=== PATIENT | male | born 1970 | race Caucasian/White ===

== ENCOUNTER 2020-08-27 21:03 | Inpatient (IN) | payer BC ==
--- NOTE | 2020-08-27 22:13 | XR ---
EXAMINATION TYPE: XR chest 1V portable DATE OF EXAM: 08/27/2020 COMPARISON: NONE HISTORY: Short of breath TECHNIQUE: Single view FINDINGS: There is some mild infiltrate and atelectasis at the lung bases bilaterally. There is no he art failure. Heart size is normal. There are chest leads. There are no hilar masses. Mediastinum is n ormal. IMPRESSION: Mild basilar pulmonary infiltrates and atelectasis.
[2020-08-27 22:14] LABS: Basophils # (A) 0.1 k/uL (0-0.2); Basophils % (A) 1 %; Eosinophils % (A) 0 %; HCT 50.7 % (39.0-53.0); HGB 17.2 gm/dL (13.0-17.5); Lymphocytes # (A) 0.7 k/uL (1.0-4.8); Lymphocytes % (A) 6 %; MCH 27.1 pg (25.0-35.0); MCV 79.8 fL (80.0-100.0); Mean Platelet Volume 7.3; Monocytes # (A) 0.6 k/uL (0-1.0); Monocytes % (A) 6 %; Neutrophils # (A) 8.9 k/uL (1.3-7.7); Neutrophils % (A) 85 %; Platelet Count 273 k/uL (150-450); RBC 6.35 m/uL (4.30-5.90); RDW 13.5 % (11.5-15.5); WBC 10.5 k/uL (3.8-10.6)
--- NOTE | 2020-08-27 22:19 | ED ---
SOB HPI - General Source: patient Mode of arrival: ambulatory Limitations: no limitations <Isidra Hoang Adebayo - Last Filed: 08/27/20 22:25> - History of Present Illness MD Complaint: shortness of breath, cough, anxiety -: week(s) Severity: moderate Severity scale (1-10): 6 Consistency: constant Improves With: oxygen, rest, upright position Worsens With: exertion, movement, other (Sleeping) Known History Of: other (Sleep apnea) Context: recent illness (Known coronavirus) Associated Symptoms: denies other symptoms <Afshin Maldonado - Last Filed: 08/28/20 01:40> - General Chief Complaint: Shortness of Breath Stated Complaint: COVID+, Revisit Time Seen by Provider: 08/27/20 21:34 - History of Present Illness Initial Comments: Patient is a 50-year-old male presenting to the emergency department with complaints of increasing shortness of breath and chest tightness. Patient states that he was recently diagnosed with Covid, 10 days ago, symptoms began 11 days ago. Patient states he was admitted to [facility] 3 nights ago for a PE, he was discharged home yesterday. Patient states he was started on eliqui s for the PE. He does wear a CPAP at home but states he's been having a hard time with this, feeling very anxious. He states he feels like "he is going to go to sleep and not wake up." He talked to his PCP regarding this and they did prescribe him a very low dose of Xanax to try. He is on steroids and he recommended taking the steroids only in the morning and trying the Xanax at night for sleep. Patient states he attempted this this evening but states he feels like his symptoms increase. He feels like he cannot slow down his heart rate. He does admit to some chest tightness. He states his fevers have been decreasing, he did have a low-grade temperature this morning. Denies any nausea or vomiting, he states he has been eating a normal diet, drinking water. Patient does have history of hyperaldosteronism and states he usually struggles with a high sodium and low potassium but he states in the past week he has been struggling with the opposite of a low sodium and high potassium. Patient has no further complaints at this time. Upon arrival to the ER, his pulse is 121, he is afebrile, BP is 138/87, 93% on room air. (Isidra Hoang) - Related Data Allergies Allergy/AdvReac Type Severity Reaction Status Date / Time Sulfa (Sulfonamide Allergy Rash/Hives Verified 08/27/20 23:06 Antibiotics) Review of Systems ROS Other: All systems not noted in ROS Statement are negative. <Isidra Hoang - Last Filed: 08/27/20 22:25> ROS Other: All systems not noted in ROS Statement are negative. <Afshin Maldonado - Last Filed: 08/28/20 01:40> ROS Statement: Those systems with pertinent positive or pertinent negative responses have been documented in the HPI. Past Medical History Past Medical History: GERD/Reflux, Hypertension, Pulmonary Embolus (PE) Additional Past Medical History / Comment(s): Hyperaldosoterone History of Any Multi-Drug Resistant Organisms: None Reported Past Surgical History: No Surgical Hx Reported Past Psychological History: No Psychological Hx Reported Smoking Status: Never smoker Past Alcohol Use History: None Reported Past Drug Use History: None Reported <Isidra Hoang - Last Filed: 08/27/20 22:25> General Exam Limitations: no limitations <Isidra Hoang - Last Filed: 08/27/20 22:25> General appearance: alert, anxious, in distress, obese Head exam: Present: atraumatic, normocephalic, normal inspection Eye exam: Present: normal appearance, PERRL, EOMI. Absent: scleral icterus, conjunctival injection, periorbital swelling ENT exam: Present: normal exam, mucous membranes moist Neck exam: Present: normal inspection. Absent: tenderness, meningismus, lymphadenopathy Respiratory exam: Present: normal lung sounds bilaterally, respiratory distress, accessory muscle use, decreased breath sounds, prolonged expiratory. Absent: wheezes, rales, rhonchi, stridor Cardiovascular Exam: Present: regular rate, normal rhythm, tachycardia, normal heart sounds. Absent: systolic murmur, diastolic murmur, rubs, gallop, clicks GI/Abdominal exam: Present: soft, normal bowel sounds. Absent: distended, tenderness, guarding, rebound, rigid Extremities exam: Present: normal inspection, full ROM, normal capillary refill. Absent: tenderness, pedal edema, joint swelling, calf tenderness Back exam: Present: normal inspection Neurological exam: Present: alert, oriented X3, CN II-XII intact Psychiatric exam: Present: normal affect, normal mood Skin exam: Present: warm, dry, intact, normal color. Absent: rash <Afshin Maldonado - Last Filed: 08/28/20 01:40> - General Exam Comments Initial Comments: GENERAL: Patient is well-developed and well-nourished. Patient is nontoxic and in mild distress, seems very anxious. HEAD: Atraumatic, normocephalic. EYES: Pupils equal round and reactive to light, extraocular movements intact, sclera anicteric, conjunctiva are normal. Eyelids were unremarkable. ENT: TMs normal, nares patent, oropharynx clear without exudates. Moist mucous membranes. NECK: Normal range of motion, supple without lymphadenopathy or JVD. LUNGS: Unlabored respirations. Breath sounds clear to auscultation bilaterally and equal. No wheezes rales or rhonchi. HEART: Tachycardia rate and rhythm without murmurs, rubs or gallops. ABDOMEN: Soft, nontender, normoactive bowel sounds. No guarding, no rebound. No masses appreciated. : Deferred MUSCULOSKELETAL: Normal extremities with adequate strength and normal range of motion, no pitting or edema. No clubbing or cyanosis. NEUROLOGICAL: Patient is alert and oriented x 3. Motor and sensory are also intact. Cranial nerves II through XII grossly intact. Symmetrical smile. Normal speech, normal gait. PSYCH: Normal mood, normal affect. SKIN: Warm, Dry, normal turgor, no rashes or lesions noted. (Isidra Hoang) Course <Afshin Maldonado - Last Filed: 08/28/20 01:40> Vital Signs 08/27/20 08/27/20 08/27/20 21:06 22:12 22:20 Temperature 98.5 F Pulse Rate 121 H 111 H Respiratory 24 20 20 Rate Blood Pressure 138/87 121/94 O2 Sat by Pulse 93 L 92 L Oximetry 08/27/20 08/28/20 08/28/20 23:13 00:07 01:17 Temperature Pulse Rate 107 H 104 H 107 H Respiratory 20 18 18 Rate Blood Pressure 131/90 122/88 133/88 O2 Sat by Pulse 94 L 93 L 93 L Oximetry - Reevaluation(s) Reevaluation #1: 08/28/20 01:36 medical record is reviewed (Afshin Maldonado) Reevaluation #2: 08/28/20 01:36 Medical record is reviewed (Afshin Maldonado) Reevaluation #3: 08/28/20 01:39 Patient still in severe anxiety and distress over inability to sleep and shortness of breath (Afshin Maldonado) Medical Decision Making - Lab Data Result diagrams: 08/27/20 21:53 <Isidra Hoang - Last Filed: 08/27/20 22:25> - Lab Data Result diagrams: 08/27/20 21:53 08/27/20 21:53 <Afshin Maldonado - Last Filed: 08/28/20 01:40> - Medical Decision Making Patient is a 50-year-old male here for shortness of breath, chest tightness and anxiety. A shunt was diagnosed with Covid 10 days ago, symptoms began 11 days ago. He he was at [facility] for the past 2 nights, diagnosed with a PE, started on Eliquis. Jossue and arrived tachycardia, 93% on room air. He is afebrile. (Isidra Hoang) 50 male will be admitted for coronavirus, supportive care, patient has known PE with coronavirus (Afshin Maldonado) - Lab Data Lab Results 08/27/20 08/27/20 08/27/20 Range/Units 21:53 21:53 21:53 WBC 10.5 (3.8-10.6) k/uL RBC 6.35 H (4.30-5.90) m/uL Hgb 17.2 (13.0-17.5) gm/dL Hct 50.7 (39.0-53.0) % MCV 79.8 L (80.0-100.0) fL MCH 27.1 (25.0-35.0) pg MCHC 34.0 (31.0-37.0) g/dL RDW 13.5 (11.5-15.5) % Plt Count 273 (150-450) k/uL MPV 7.3 Neutrophils % 85 % Lymphocytes % 6 % Monocytes % 6 % Eosinophils % 0 % Basophils % 1 % Neutrophils # 8.9 H (1.3-7.7) k/uL Lymphocytes # 0.7 L (1.0-4.8) k/uL Monocytes # 0.6 (0-1.0) k/uL Eosinophils # 0.0 (0-0.7) k/uL Basophils # 0.1 (0-0.2) k/uL PT 13.0 H (9.0-12.0) sec INR 1.3 H (<1.2) APTT 25.9 (22.0-30.0) sec D-Dimer 0.34 (<0.60) mg/L FEU Sodium 129 L (137-145) mmol/L Potassium 5.2 H (3.5-5.1) mmol/L Chloride 95 L (98-107) mmol/L Carbon Dioxide 22 (22-30) mmol/L Anion Gap 12 mmol/L BUN 29 H (9-20) mg/dL Creatinine 1.18 (0.66-1.25) mg/dL Est GFR (CKD-EPI)AfAm 83 (>60 ml/min/1.73 sqM) Est GFR (CKD-EPI)NonAf 72 (>60 ml/min/1.73 sqM) Glucose 106 H (74-99) mg/dL Plasma Lactic Acid Ghassan (0.7-2.0) mmol/L Calcium 9.4 (8.4-10.2) mg/dL Magnesium 1.9 (1.6-2.3) mg/dL Total Bilirubin 0.9 (0.2-1.3) mg/dL AST 39 (17-59) U/L ALT 45 (4-49) U/L Alkaline Phosphatase 67 (38-126) U/L Lactate Dehydrogenase 801 H (313-618) U/L Troponin I (0.000-0.034) ng/mL C-Reactive Protein 82.4 H (<10.0) mg/L NT-Pro-B Natriuret Pep pg/mL Total Protein 7.3 (6.3-8.2) g/dL Albumin 4.1 (3.5-5.0) g/dL 08/27/20 08/27/20 08/27/20 Range/Units 21:53 22:15 22:19 WBC (3.8-10.6) k/uL RBC (4.30-5.90) m/uL Hgb (13.0-17.5) gm/dL Hct (39.0-53.0) % MCV (80.0-100.0) fL MCH (25.0-35.0) pg MCHC (31.0-37.0) g/dL RDW (11.5-15.5) % Plt Count (150-450) k/uL MPV Neutrophils % % Lymphocytes % % Monocytes % % Eosinophils % % Basophils % % Neutrophils # (1.3-7.7) k/uL Lymphocytes # (1.0-4.8) k/uL Monocytes # (0-1.0) k/uL Eosinophils # (0-0.7) k/uL Basophils # (0-0.2) k/uL PT (9.0-12.0) sec INR (<1.2) APTT (22.0-30.0) sec D-Dimer (<0.60) mg/L FEU Sodium (137-145) mmol/L Potassium (3.5-5.1) mmol/L Chloride (98-107) mmol/L Carbon Dioxide (22-30) mmol/L Anion Gap mmol/L BUN (9-20) mg/dL Creatinine (0.66-1.25) mg/dL Est GFR (CKD-EPI)AfAm (>60 ml/min/1.73 sqM) Est GFR (CKD-EPI)NonAf (>60 ml/min/1.73 sqM) Glucose (74-99) mg/dL Plasma Lactic Acid Ghassan 1.1 (0.7-2.0) mmol/L Calcium (8.4-10.2) mg/dL Magnesium (1.6-2.3) mg/dL Total Bilirubin (0.2-1.3) mg/dL AST (17-59) U/L ALT (4-49) U/L Alkaline Phosphatase (38-126) U/L Lactate Dehydrogenase (313-618) U/L Troponin I <0.012 (0.000-0.034) ng/mL C-Reactive Protein (<10.0) mg/L NT-Pro-B Natriuret Pep 68 pg/mL Total Protein (6.3-8.2) g/dL Albumin (3.5-5.0) g/dL - EKG Data EKG Comments: Sinus tach, possible left atrial enlargement, no signs of acute ischemia. Ventricular rate 107, IA interval 134, QT 302. (Isidra Hoang) Disposition <Isidra Hoang - Last Filed: 08/27/20 22:25> Is patient prescribed a controlled substance at d/c from ED?: No <Afhsin Maldonado - Last Filed: 08/28/20 01:40> Clinical Impression: Coronavirus infection, Pneumonia due to COVID-19 virus, Pulmonary embolism, Anxiety, Sleep apnea Disposition: ADMITTED IP TO THIS HOSP Condition: Fair Referrals: None,Stated [Primary Care Provider] - 1-2 days
[2020-08-27 22:25] LABS: Potassium 5.2 mmol/L (3.5-5.1)
[2020-08-27 22:28] LABS: Albumin 4.1 g/dL (3.5-5.0); C Reactive Protein 82.4 mg/L (<10.0); Calcium 9.4 mg/dL (8.4-10.2); Magnesium 1.9 mg/dL (1.6-2.3); Total Bilirubin 0.9 mg/dL (0.2-1.3); Total Protein 7.3 g/dL (6.3-8.2)
[2020-08-27 22:31] LABS: D-Dimer 0.34 mg/L FEU (<0.60); INR 1.3 (<1.2); Partial Thromboplastin Time 25.9 sec (22.0-30.0)
[2020-08-27] MEDS ORDERED: SODIUM CHLORIDE 0.9% 1,000 ML IV STA (22:58)
[2020-08-28] MEDS ORDERED: IBUPROFEN 400 MG TAB PO PRN (01:30)
[2020-08-28] MEDS ORDERED: MORPHINE SULFATE 4 MG/ML SYRINGE IV PRN (01:30)
[2020-08-28] MEDS ORDERED: ALBUTEROL HFA INHALER INHALATION PRN (01:30)
[2020-08-28] MEDS ORDERED: ACETAMINOPHEN TAB 325 MG TAB PO PRN (01:30)
[2020-08-28] MEDS ORDERED: NALOXONE 0.4 MG/ML 1 ML VIAL IV PRN (01:30)
[2020-08-28] MEDS ORDERED: ONDANSETRON 4 MG/2 ML VIAL IVP PRN (01:30)
[2020-08-28] MEDS ORDERED: ALBUTEROL HFA INHALER INHALATION STA (01:30)
[2020-08-28] MEDS: SODIUM CHLORIDE 0.9% 1,000 ML IV SCH ×2 (01:43→10:25)
[2020-08-28] MEDS ORDERED: diphenhydrAMINE 50 MG/ML 1 ML VIAL IVP STA (02:20)
[2020-08-28] MEDS ORDERED: ENOXAPARIN 40 MG/0.4 ML SYRINGE SQ SCH (09:00)
[2020-08-28] MEDS ORDERED: ALPRAZolam 0.25 MG TAB PO PRN (09:26)
--- NOTE | 2020-08-28 09:26 | P.CNPUL ---
History of Present Illness Consult date: 08/28/20 Reason for consult: pneumonia, pulmonary embolism History of present illness: 50-year-old female patient hospitalized for worsening shortness of breath and chest tightness. She was diagnosed having a covid19 infection 08/20/2020 ago. The patient started getting symptomatic 10 daysago. Note to [facility] for 3 days ago, she was diagnosed having a pulmonary embolism and the patient was discharged home on Eliquis.. He was completing a course of prednisone which she started on 08/23/2020. He took 40 mg for around 5 days. This made him quite anxious. He became restless and anxious and he was having difficulties in tolerating the BiPAP that he uses for his obstructive sleep apnea. For that reason, the patient decided to come in to our hospital for further evaluation. At the time of arrival, he was noted to be hypoxic and currently is on room air oxygen with a pulse of 92%. He was initially placed on 100% nonrebreather fa cemask weaned down to 3 L and I dropped him down to room air oxygen. He was having some sinus tachycardia which is also improved. Inflammatory markers shows a d-dimer of 0.34, the LDH was 8-1, CRP was 82 and a troponin was negative. He also tells that the Doppler of the lower extremity was done at the other hospital came back negative. He has no angina. No palpitation. He was noted to be anxious by his hospitalization [facility] and the patient was given some Xanax which calmed down significantly. He has no fever. He has history of hyperaldosteronism and is demented on a combination of Cozaar and Aldactone. His sodium level is at 129 and his potassium level currently is at 5.2. Review of Systems Constitutional: Denies chills, Denies fever Eyes: denies as per HPI, denies blurred vision, denies bulging eye, denies decreased vision, denies diplopia, denies discharge, denies dry eye, denies irritation, denies itching, denies pain, denies photophobia, denies loss of peripheral vision, denies loss of vision, denies tunnel vision/blind spots Ears: deny: decreased hearing, ear discharge, earache, tinnitus Ears, nose, mouth and throat: Reports as per HPI Breasts: absent: as per HPI, gynecomastia Cardiovascular: Reports dyspnea on exertion Respiratory: Reports dyspnea, Reports sleep apnea Gastrointestinal: Reports as per HPI Genitourinary: Reports as per HPI Musculoskeletal: Reports as per HPI Musculoskeletal: absent: ankle pain, ankle stiffness, ankle swelling Integumentary: Reports as per HPI Neurological: Reports as per HPI Psychiatric: Reports anxiety Endocrine: Reports as per HPI Hematologic/Lymphatic: Reports as per HPI Allergic/Immunologic: Reports as per HPI Past Medical History Past Medical History: GERD/Reflux, Hypertension, Pulmonary Embolus (PE) Additional Past Medical History / Comment(s): Hyperaldosoterone, Covid 19 infection on 08/20/2020 History of Any Multi-Drug Resistant Organisms: None Reported Past Surgical History: No Surgical Hx Reported Past Psychological History: No Psychological Hx Reported Smoking Status: Never smoker Past Alcohol Use History: None Reported Past Drug Use History: None Reported Medications and Allergies Home Medications Medication Instructions Recorded Confirmed Type ALPRAZolam [Xanax] 0.25 mg PO BID PRN 08/27/20 08/27/20 History Albuterol Inhaler [Ventolin Hfa 2 puff INHALATION RT-Q6H PRN 08/27/20 08/27/20 History Inhaler] Apixaban [Eliquis] See Taper PO DAILY 08/27/20 08/27/20 History Docusate [Colace] 100 mg PO DAILY PRN 08/27/20 08/27/20 History Omeprazole [PriLOSEC] 20 mg PO DAILY 08/27/20 08/27/20 History Ondansetron Odt [Zofran ODT] 4 mg PO TID PRN 08/27/20 08/27/20 History Simethicone [Gas-X] 125 mg PO DAILY PRN 08/27/20 08/27/20 History Spironolactone [Aldactone] 50 mg PO BID 08/27/20 08/27/20 History guaiFENesin [Mucinex] 600 mg PO BID PRN 08/27/20 08/27/20 History predniSONE [Deltasone] 20 mg PO BID 08/27/20 08/27/20 History Allergies Allergy/AdvReac Type Severity Reaction Status Date / Time Sulfa (Sulfonamide Allergy Rash/Hives Verified 08/27/20 23:06 Antibiotics) Physical Exam Vitals: Vital Signs Temp Pulse Resp BP Pulse Ox 08/28/20 07:54 92 18 95 08/28/20 07:15 99.3 F 93 18 152/99 100 08/28/20 01:17 107 H 18 133/88 93 L 08/28/20 00:07 104 H 18 122/88 93 L 08/27/20 23:13 107 H 20 131/90 94 L 08/27/20 22:20 111 H 20 121/94 92 L 08/27/20 22:12 20 08/27/20 21:06 98.5 F 121 H 24 138/87 93 L Intake and Output 08/27/20 08/28/20 08/28/20 22:59 06:59 14:59 Other: Weight 136.078 kg The patient appeared well nourished and normally developed. Vital signs as documented. Head exam is unremarkable. No scleral icterus or corneal arcus noted. Neck is without jugular venous distension, thyromegaly, or carotid bruits. Carotid upstrokes are brisk bilaterally. Lungs are clear to auscultation and percussion. Excellent lung bases bilaterally. Cardiac exam reveals the PMI to be normally sized and situated. Rhythm is regular. First and second heart sounds normal. No murmurs, rubs or gallops. Abdominal exam reveals normal bowel sounds, no masses, no organomegaly and no aortic enlargement. Extremities are nonedematous and both femoral and pedal pulses are normal.Examination of the skin revealed no evidence of significant rashes, suspicious appearing nevi or other concerning lesions.Neurologically, the patient is awake and alert and the patient does not have any focal neurological deficit. Cranial nerves are essentially intact. Results - Laboratory Findings CBC and BMP: 08/27/20 21:53 08/27/20 21:53 PT/INR, D-dimer PT 13.0 sec (9.0-12.0) H 08/27/20 21:53 INR 1.3 (<1.2) H 08/27/20 21:53 D-Dimer 0.34 mg/L FEU (<0.60) 08/27/20 21:53 Abnormal lab findings: Abnormal Labs 08/27/20 08/27/20 08/27/20 21:53 21:53 21:53 RBC 6.35 H MCV 79.8 L Neutrophils # 8.9 H Lymphocytes # 0.7 L PT 13.0 H INR 1.3 H Sodium 129 L Potassium 5.2 H Chloride 95 L BUN 29 H Glucose 106 H Lactate Dehydrogenase 801 H C-Reactive Protein 82.4 H - Diagnostic Findings Chest x-ray: image reviewed Assessment and Plan Plan: 1 acute Covid 19 related pneumonia diagnosed on 08/20/2020, treated with prednisone outpatient basis, coming for evaluation of the patient experienced some increased anxiety and shortness of breath while being on prednisone. No objective worsening in his oxygenation. No objective signs of decompensation from Covid 19 related pneumonia. 2 acute pulmonary embolism, currently on Eliquis 3 obstructive sleep apnea, having difficulties in tolerating his BiPAP which is currently set at a pressure of 18/14 cm of water 4 obesity with a BMI of 39.6 5 hyperaldosteronism maintained on a deck on outpatient basis and addition to Cozaar 6 hypertension Plan I'm quite comfortable and is stating that the patient's symptoms are probably related to steroids and increased anxiety and difficulty breathing is secondary to that. We will repeat the CT angios the chest to make sure there is no obvious progression of his pulmonary embolism or any worsening in his Covid 19 related pneumonia. Put the patient on Decadron 6 g by mouth daily. Eliquis at a dose of 10 mg by mouth twice a day to complete a one-week course and following that he will be switched to 5 mg by mouth daily. Discontinue the Lovenox. Hold on BiPAP therapy for now. Xanax 0.5 mg every 4-6 hours for increased anxiety as needed. We'll continue to follow. Inflammatory markers were noted. Chest x-ray was noted.
[2020-08-28] MEDS: dexAMETHasone 2 MG TAB PO SCH (10:25)
[2020-08-28 10:38] LABS: Calcium 9.1 mg/dL (8.4-10.2); Potassium 4.5 mmol/L (3.5-5.1)
[2020-08-28 10:49] LABS: Ferritin 1056.3 ng/mL (22.0-322.0)
--- NOTE | 2020-08-28 11:20 | CT ---
EXAMINATION TYPE: CT chest angio for PE DATE OF EXAM: 08/28/2020 COMPARISON: Chest x-ray from yesterday HISTORY: Covid hypoxia, Weak, PE CT DLP: 745.4 mGycm Automated exposure control for dose reduction was used. CONTRAST: CT Chest for pulmonary embolism performed with with IV Contrast, patient injected with 100 mL of Isov ue 370. FINDINGS: LUNGS: Multifocal areas of groundglass opacity are greatest in the lower lungs with additional mild t o moderate linear scarring and/or atelectasis in the posterior bases. Slightly elevated left hemidiap hragm. No pleural effusion or pneumothorax seen. No suspicious pulmonary nodules or masses. MEDIASTINUM: There is suboptimal bolus with most dense contrast in the SVC and some contrast opacific ation of aorta. No thoracic aortic aneurysm or dissection. No central pulmonary embolism, cannot enti rely exclude segmental and subsegmental PE on this study. There are prominent bilateral hilar lymph n odes. No greater than 1 cm mediastinal adenopathy. No cardiomegaly or pericardial effusion is seen. OTHER: Visualized liver is markedly hypodense consistent with diffuse fatty infiltration. Hemangioma involving the T7 vertebra. IMPRESSION: Suboptimal study without central pulmonary embolism. Cannot entirely exclude segmental an d subsegmental pulmonary emboli on this study. Multifocal groundglass opacities greatest in the lower lungs consistent with Covid-19 infection.
[2020-08-28] MEDS: LORazepam 0.5 MG TAB PO PRN ×2 (12:47→20:01)
[2020-08-28] MEDS ORDERED: hydrALAZINE HCL 20 MG/ML 1 ML VIAL IVP PRN (18:23)
[2020-08-28] MEDS: APIXABAN 5 MG TAB PO SCH (20:01)
--- NOTE | 2020-08-29 00:20 | P.HPIM ---
History of Present Illness H&P Date: 08/28/20 Chief Complaint: Shortness of breath and anxiety Patient is a 50-year-old male with a known history of hypertension, obstructive sleep apnea on CPAP pulmonary embolism, hyperaldosteronism and GERD who was diagnosed with COVID-19 infection on 08/20/2020 when he started getting symptoms. Patient was started on prednisone course on 08/23/2020 with 40 mg daily for 5 days. Patient felt very anxious and restless and was having difficulty in tolerating BiPAP at home. Patient decided to come to the hospital for evaluation. Patient was admitted to [facility] 3 days ago and was pulmonary embolism. Patient is currently on Eliquis for anticoagulation. Patient was hypoxic on arrival to ER and was initially on 100% nonrebreather and currently titrated down to 3 L oxygen via nasal cannula. Chest x-ray showed mild basilar pulmonary infiltrates and atelectasis. CT angiogram of the chest showed suboptimal study without central pulmonary embolism. Cannot exclude entirely segmental and subsegmental pulmonary emboli on this study. Multifocal groundglass opacities greatest in the lower lungs consistent with COVID-19 infection. EKG showed sinus tachycardia Laboratory data showed WBC 10.5, hemoglobin 17.2 MCV 79.8 and lymphocytes 0.7 D-dimer 0.34 Sodium 129 potassium 5.2 chloride 95 BUN 29 and creatinine 1.18 Ferritin 1056 LDH 801, CRP 82.4 and pro calcitonin level 0.12 Review of Systems Constitutional: Patient denies any fever or chills . No generalized weakness or weight loss. Abdomen: Patient denied nausea vomiting and diarrhea and abdominal pain. Cardiovascular: Patient denies any chest pain or short of breath no palpitation s. Respiratory: patient denied any cough or sputum production. No shortness of breath Neurologic: Patient denied any numbness or tingling headache. Musculoskeletal: Patient denies any complaints of joint swelling or deformity. Skin: Negative Psychiatric: Negative Endocrine: No heat or cold intolerance. No recent weight gain. Genitourinary: No dysuria or hematuria. All other 14 point ROS negative except the above Past Medical History Past Medical History: GERD/Reflux, Hypertension, Pulmonary Embolus (PE) Additional Past Medical History / Comment(s): Hyperaldosoterone, Covid 19 infection on 08/20/2020 History of Any Multi-Drug Resistant Organisms: None Reported Past Surgical History: No Surgical Hx Reported Past Psychological History: No Psychological Hx Reported Smoking Status: Never smoker Past Alcohol Use History: None Reported Past Drug Use History: None Reported - Past Family History Father Family Medical History: CVA/TIA Additional Family Medical History / Comment(s): father of a CVA at the age of 71 yrs. Mother Family Medical History: Cancer, Dementia, Diabetes Mellitus, Hyperlipidemia, Hypertension Additional Family Medical History / Comment(s): Breast cancer Medications and Allergies Home Medications Medication Instructions Recorded Confirmed Type ALPRAZolam [Xanax] 0.25 mg PO BID PRN 08/27/20 08/27/20 History Albuterol Inhaler [Ventolin Hfa 2 puff INHALATION RT-Q6H PRN 08/27/20 08/27/20 History Inhaler] Apixaban [Eliquis] See Taper PO DAILY 08/27/20 08/27/20 History Docusate [Colace] 100 mg PO DAILY PRN 08/27/20 08/27/20 History Omeprazole [PriLOSEC] 20 mg PO DAILY 08/27/20 08/27/20 History Ondansetron Odt [Zofran ODT] 4 mg PO TID PRN 08/27/20 08/27/20 History Simethicone [Gas-X] 125 mg PO DAILY PRN 08/27/20 08/27/20 History Spironolactone [Aldactone] 50 mg PO BID 08/27/20 08/27/20 History guaiFENesin [Mucinex] 600 mg PO BID PRN 08/27/20 08/27/20 History predniSONE [Deltasone] 20 mg PO BID 08/27/20 08/27/20 History Allergies Allergy/AdvReac Type Severity Reaction Status Date / Time Sulfa (Sulfonamide Allergy Rash/Hives Verified 08/27/20 23:06 Antibiotics) Physical Exam Vitals: Vital Signs Temp Pulse Resp BP Pulse Ox 08/28/20 10:18 152/97 08/28/20 07:54 92 18 95 08/28/20 07:15 99.3 F 93 18 152/99 100 08/28/20 01:17 107 H 18 133/88 93 L 08/28/20 00:07 104 H 18 122/88 93 L 08/27/20 23:13 107 H 20 131/90 94 L 08/27/20 22:20 111 H 20 121/94 92 L 08/27/20 22:12 20 08/27/20 21:06 98.5 F 121 H 24 138/87 93 L Intake and Output 08/27/20 08/28/20 08/28/20 22:59 06:59 14:59 Other: Weight 136.078 kg PHYSICAL EXAMINATION: Patient is lying in the bed comfortably, no acute distress, awake alert and oriented.. HEENT: Normocephalic. Neck is supple. Pupils reactive. Nostrils clear. Oral cavity is moist. Ears reveal no drainage. Neck reveals no JVD, carotid bruits, or thyromegaly. CHEST EXAMINATION: Trachea is central. Symmetrical expansion. Bibasilar diminished air entry and coarse breath sounds. CARDIAC: Normal S1, S2 with no gallops. No murmurs ABDOMEN: Soft. Bowel sounds normal. No organomegaly. No abdominal bruits. Extremities: reveal no edema. No clubbing or cyanosis Neurologically awake, alert, oriented x3 with well-coordinated movements. No focal deficits noted Skin: No rash or skin lesions. Psychiatric: Coperative. Nonsuicidal Musculoskeletal: No joint swelling or deformity. Normal range of motion. Results CBC & Chem 7: 08/27/20 21:53 08/28/20 09:58 Labs: Abnormal Lab Results - Last 24 Hours (Table) 08/27/20 08/27/20 08/27/20 Range/Units 21:53 21:53 21:53 RBC 6.35 H (4.30-5.90) m/uL MCV 79.8 L (80.0-100.0) fL Neutrophils # 8.9 H (1.3-7.7) k/uL Lymphocytes # 0.7 L (1.0-4.8) k/uL PT 13.0 H (9.0-12.0) sec INR 1.3 H (<1.2) Sodium 129 L (137-145) mmol/L Potassium 5.2 H (3.5-5.1) mmol/L Chloride 95 L (98-107) mmol/L BUN 29 H (9-20) mg/dL Glucose 106 H (74-99) mg/dL Lactate Dehydrogenase 801 H (313-618) U/L C-Reactive Protein 82.4 H (<10.0) mg/L Thrombosis Risk Factor Assmnt - DVT/VTE Prophylaxis DVT/VTE Prophylaxis: Pharmacologic Prophylaxis ordered Assessment and Plan Assessment: Acute hypoxic respiratory failure secondary to COVID-19 pneumonia Recently diagnosed with acute PE 3 days ago at [facility]. Currently on Eliquis Increasing anxiety and jitteriness while being on prednisone. Elevated inflammatory markers. Hypovolemic hyponatremia Obstructive sleep apnea on CPAP at home Hyperaldosteronism currently on follow-up as an outpatient Obesity with BMI 39.6 Hypertension DVT prophylaxis patient is already on Eliquis. Plan: Patient will be continued on IV hydration and monitor BMP. Patient will be continued on dexamethasone and Eliquis and oxygen supplementation. Continue with home medications and follow-up closely. Breathing treatments as needed. Pulmonary is on board and further recommendations based on the clinical course. Time with Patient: Greater than 30
[2020-08-29] MEDS: SODIUM CHLORIDE 0.9% 1,000 ML IV SCH (00:47)
[2020-08-29 01:46] VITALS: RESP 18
[2020-08-29] MEDS: LORazepam 0.5 MG TAB PO PRN ×2 (04:45→12:21)
[2020-08-29 07:46] VITALS: TEMP 98.1
[2020-08-29] MEDS ORDERED: SIMETHICONE 80 MG CHEWABLE PO PRN (08:48)
[2020-08-29] MEDS ORDERED: guaiFENesin 600 MG TABLET.ER PO PRN (08:48)
[2020-08-29] MEDS ORDERED: DOCUSATE 100 MG CAP PO PRN (08:48)
[2020-08-29] MEDS ORDERED: SPIRONOLACTONE 25 MG TAB PO SCH (09:00)
[2020-08-29] MEDS ORDERED: PANTOPRAZOLE 40 MG TABLET PO SCH (09:00)
[2020-08-29] MEDS: APIXABAN 5 MG TAB PO SCH (09:18)
[2020-08-29] MEDS: dexAMETHasone 2 MG TAB PO SCH (09:23)
[2020-08-29 10:55] LABS: HCT 49.4 % (39.6-50.0); MCH 28.7 pg (27.0-32.0); MCHC 34.4 g/dL (32.0-37.0); MCV 83.3 fL (80.0-97.0); Mean Platelet Volume 9.6 fL (9.5-12.2); Platelet Count 321 X 10*3/uL (140-440); RBC 5.93 X 10*6/uL (4.40-5.60); RDW 13.8 % (11.5-14.5); WBC 8.13 X 10*3/uL (4.50-10.00)
[2020-08-29 11:36] LABS: African American GFR (CKD) 90.2 (60.0-200.0); Albumin 4.1 g/dL (3.80-4.90); Albumin/Globulin Ratio 1.71 (1.60-3.17); Anion Gap 12.7 mmol/L (4.00-12.00); BUN/Creat Ratio 27.27 Ratio (12.00-20.00); Calcium 9.6 mg/dL (8.7-10.3); Carbon Dioxide 21.3 mmol/L (21.6-31.8); Globulin 2.4 g/dL (1.6-3.3); Magnesium 2.1 mg/dL (1.5-2.4); Non-African American GFR(CKD) 77.9 (60.0-200.0); Phosphorus 4.3 mg/dL (2.4-5.1); Potassium 5.2 mmol/L (3.5-5.5); Total Bilirubin 0.8 mg/dL (0.2-1.2); Total Protein 6.5 g/dL (6.2-8.2)
[2020-08-29 12:06] LABS: Basophils # (A) 0.05 X 10*3/uL (0.00-0.10); Basophils % (A) 0.6 %; Eosinophils # (A) 0 X 10*3/uL (0.04-0.35); Eosinophils % (A) 0 %; Lymphocytes # (A) 1.14 X 10*3/uL (0.90-5.00); Monocytes # (A) 0.72 X 10*3/uL (0.20-1.00); Monocytes % (A) 8.9 %; Neutrophils # (A) 5.96 X 10*3/uL (1.80-7.70); Neutrophils % (A) 73.3 %
--- NOTE | 2020-08-29 12:08 | P.PN ---
Subjective Progress Note Date: 08/29/20 50-year-old female patient hospitalized for worsening shortness of breath and chest tightness. She was diagnosed having a covid19 infection 08/20/2020 ago. The patient started getting symptomatic 10 daysago. Note to [facility] for 3 days ago, she was diagnosed having a pulmonary embolism and the patient was discharged home on Eliquis.. He was completing a course of prednisone which she started on 08/23/2020. He took 40 mg for around 5 days. This made him quite anxious. He became restless and anxious and he was having difficulties in tolerating the BiPAP that he uses for his obstructive sleep apnea. For that reason, the patient decided to come in to our hospital for further evaluation. At the time of arrival, he was noted to be hypoxic and currently is on room air oxygen with a pulse of 92%. He was initially placed on 100% nonrebreather facemask weaned down to 3 L and I dropped him down to room air oxygen. He was having some sinus tachycardia which is also improved. Inflammatory markers shows a d-dimer of 0.34, the LDH was 8-1, CRP was 82 and a troponin was negative. He also tells that the Doppler of the lower extremity was done at the other hospital came back negative. He has no angina. No palpitation. He was noted to be anxious by his hospitalization [facility] and the patient was given some Xanax which calmed down significantly. He has no fever. He has history of hyperaldosteronism and is demented on a combination of Cozaar and Aldactone. His sodium level is at 129 and his potassium level currently is at 5.2. On today's evaluation of 08/29/2020. I'm seeing this patient for a follow-up. The patient is admitted, however, for now is in the emergency due to bad and availability. As part of further workup, a CAT scan of the chest was done and showed some limited groundglass pulmonary infiltrates in the lungs bilaterally more so in the lower lobes consistent with Covid 19 related pneumonia. There was no evidence of any pulmonary embolism. Groundglass opacities were seen more so in the lower lobes. Clinically however, the patient is doing well. He remains on Eliquis that was started for a previous pulmonary embolism. He is on Decadron 6 mg by mouth daily. His blood work from today showing a normal hemoglobin of 17, his BUN is at 30 with a creatinine of 1.1, inflammatory markers show a drop in the LDH down to 305, CRP from yesterday was 82. Pro- calcitonin level was 0.12. No new complaints otherwise for now. He is on Xanax and is requiring to use it as needed. Objective - Vital Signs Vital signs: Vital Signs Temp 98.1 F 08/29/20 07:45 Pulse 90 08/29/20 07:45 Resp 18 08/29/20 07:45 BP 149/103 08/29/20 07:45 Pulse Ox 97 08/29/20 07:45 Intake & Output 08/28/20 08/29/20 08/29/20 18:59 06:59 18:59 Intake Total 800 Balance 800 Weight 136.078 kg Intake: Oral 800 Other: Voiding Method Toilet # Voids 2 # Bowel Movements 2 - Exam The patient appeared well nourished and normally developed. Vital signs as documented. Head exam is unremarkable. No scleral icterus or corneal arcus noted. Neck is without jugular venous distension, thyromegaly, or carotid bruits. Carotid upstrokes are brisk bilaterally. Lungs are clear to auscultation and percussion. Excellent lung bases bilaterally. Cardiac exam reveals the PMI to be normally sized and situated. Rhythm is regular. First and second heart sounds normal. No murmurs, rubs or gallops. Abdominal exam reveals normal bowel sounds, no masses, no organomegaly and no aortic enlargement. Extremities are nonedematous and both femoral and pedal pulses are normal.Examination of the skin revealed no evidence of significant rashes, suspicious appearing nevi or other concerning lesions.Neurologically, the patient is awake and alert and the patient does not have any focal neurological deficit. Cranial nerves are essentially intact. - Labs CBC & Chem 7: 08/29/20 07:02 08/29/20 07:02 Labs: Abnormal Lab Results - Last 24 Hours (Table) 08/27/20 08/29/20 08/29/20 Range/Units 21:53 07:02 07:02 RBC 5.93 H (4.40-5.60) X 10*6/uL Sodium 131 L (135-145) mmol/L Carbon Dioxide 21.3 L (21.6-31.8) mmol/L Anion Gap 12.70 H (4.00-12.00) mmol/L BUN 30.0 H (9.0-27.0) mg/dL BUN/Creatinine Ratio 27.27 H (12.00-20.00) Ratio Lactate Dehydrogenase 305 H (120-246) U/L Procalcitonin 0.12 H (0.02-0.09) ng/mL Microbiology - Last 24 Hours (Table) 08/27/20 22:15 Blood Culture - Preliminary Blood No Growth after 24 hours 08/27/20 21:53 Blood Culture - Preliminary Blood No Growth after 24 hours Assessment and Plan Plan: 1 acute Covid 19 related pneumonia diagnosed on 08/20/2020, treated with prednisone outpatient basis, coming for evaluation of the patient experienced some increased anxiety and shortness of breath while being on prednisone. No objective worsening in his oxygenation. No objective signs of decompensation from Covid 19 related pneumonia. I reviewed the computed tomography scan of the chest that was done yesterday. There is no convincing evidence of pulmonary em bolism. The patient is on Eliquis. There is evidence of Covid 19 related pneumonia with diffuse bilateral groundglass pulmonary opacities and patient is currently on Decadron. He remains on 2 L about 2 by nasal cannula. Inflammatory markers are improving. 2 acute pulmonary embolism, currently on Eliquis 3 obstructive sleep apnea, having difficulties in tolerating his BiPAP which is currently set at a pressure of 18/14 cm of water 4 obesity with a BMI of 39.6 5 hyperaldosteronism maintained on a deck on outpatient basis and addition to Cozaar 6 hypertension Plan I will suggest continuing oxygen and wean it off to maintain a saturation above 90% Continue Decadron 6 mg by mouth daily to complete a total of 10 day course Continue anticoagulation despite the fact that the patient was not found to have a clot on the most recent CAT scan Xanax for increased anxiety as needed We'll continue to follow. Inflammatory markers were noted. The LDH level is improving. CAT scan of the chest was noted.
[2020-08-29 16:37] VITALS: BP 140/78; PULSE 80
== END 2020-08-29 16:48 | disposition home or self-care (01) | DRG 177 ==
LOC: EC 21:03 → 1SOBS 08-28 01:33 → 4SSUR 08-28 20:11
PROVIDERS: ADMIT Hospitalist; ATTEND Hospitalist
DX: U07.1 COVID-19 (principal); I26.99 Other pulmonary embolism without acute cor pulmonale; J96.01 Acute respiratory failure with hypoxia; J12.82 Pneumonia due to coronavirus disease 2019; E87.1 Hypo-osmolality and hyponatremia; J98.11 Atelectasis; E26.9 Hyperaldosteronism, unspecified; Z88.2 Allergy status to sulfonamides; K21.9 Gastro-esophageal reflux disease without esophagitis; Z86.711 Personal history of pulmonary embolism; I10 Essential (primary) hypertension; Z79.01 Long term (current) use of anticoagulants; G47.33 Obstructive sleep apnea (adult) (pediatric); E66.9 Obesity, unspecified; Z68.39 Body mass index [BMI] 39.0-39.9, adult; Z82.3 Family history of stroke; Z83.3 Family history of diabetes mellitus; Z82.49 Family history of ischemic heart disease and other diseases of the circulatory system; Z80.3 Family history of malignant neoplasm of breast; F41.9 Anxiety disorder, unspecified; R00.0 Tachycardia, unspecified; E86.1 Hypovolemia; F03.90 Unspecified dementia, unspecified severity, without behavioral disturbance, psychotic disturbance, mood disturbance, and anxiety
CPT/HCPCS: 36415; 71045; 71275; 80048; 80053; 82728; 83605; 83615; 83735; 83880; 84100; 84145; 84484; 85025; 85379; 85610; 85730; 86140; 87040; 93005; 94640; 96360; 99285